=== PATIENT | female | born 1950 | race Hispanic/Latino ===

== ENCOUNTER → 2018-11-01 | Day surgery (SDC) | payer MEDICARE ==
[2018-10-30 10:35] LABS: BASOPHILS # (AUTO) 0.1 (0.0-0.1); EOSINOPHILS # (AUTO) 0.1 (0.0-0.4); EOSINOPHILS % 1.4 % (0.0-6.0); HEMATOCRIT 43.8 % (34.2-44.1); HEMOGLOBIN 14.9 g/dL (12.0-16.0); LYMPHOCYTES # (AUTO) 1.8 (1.0-3.2); LYMPHOCYTES % 19.2 % (18.0-39.1); MEAN CORPUSCULAR HEMOGLOBIN 33.2 pg (28-32); MEAN CORPUSCULAR VOLUME 97.6 fL (81-99); MONOCYTES # (AUTO) 0.7 (0.2-0.8); MONOCYTES % 7.6 % (4.4-11.3); NEUTROPHILS # (AUTO) 6.6 (2.1-6.9); NEUTROPHILS % 70.5 % (38.7-80.0); PLATELET COUNT 290 x10e3/uL (140-360); RED BLOOD COUNT 4.49 x10e6/uL (3.6-5.1); RED CELL DISTRIBUTION WIDTH 13.1 % (11.7-14.4)
[2018-10-30 10:58] LABS: INR 0.89; PROTHROMBIN TIME 12.5 seconds (11.9-14.5)
[2018-10-30 10:59] LABS: PARTIAL THROMBOPLASTIN TIME 26.9 seconds (23.8-35.5)
[2018-10-30 11:07] LABS: CHOL/HDL RATIO 2.5 (3.0-3.6)
[2018-10-30 11:29] LABS: ALBUMIN 4.7 g/dL (3.5-5.0); ANION GAP 15.9 mmol/L (8-16); CALCIUM 9.8 mg/dL (8.4-10.2); CREATININE, SERUM 0.93 mg/dL (0.57-1.11); POTASSIUM 3.9 mmol/L (3.5-5.1)
[~2018-11-01] VITALS: Ht 165.1 cm; Wt 76.2 kg
[2018-11-01] VITALS (7 sets, daily range): BP systolic 100–154; BP diastolic 57–80
[~2018-11-01] MED LIST: ASPIR 8181 MG PO; ASPIRIN 325 MG TAB ONE; CRESTOR10 MG PO; FENTANYL CITRATE/PF 100MCG/2 ML INJ ONE; HEPARIN SOD/SOD CHLORIDE 2,000 ML ONE; IOPAMIDOL 370 MG/ML 200 ML INFUS..BTL INJ ONE; LIDOCAINE HCL 2% LOCAL 20 ML VIAL ONE; LOSARTAN POTASS25 MG PO; METOPROLOL SUCC50 MG PO; MIDAZOLAM HCL 2 MG/2 ML VIAL ONE; PREVACID30 MG PO; QUINOL PO; SODIUM CHLORIDE 0.9% 1000ML 1,000 ML ONE; VERAPAMIL HCL 2.5 MG/ML 2 ML VIAL ONE; VITAMIN D35000 UNIT PO
--- OUTSIDE RECORDS SUMMARY | 2018-11-01 08:22 | XMS REPORT | Summary of Care ---
Author Author [facility] [place] Organization [facility] [place] Address Unknown Phone Unavailable Encounter HQ Encntr_alias(FIN) [id number] Date(s): 03/10/18 - 03/10/18 [facility] [place] [address] [place] [phone] Encounter Diagnosis Encounter for screening mammogram for malignant neoplasm of breast (Final) - 03/15/18 Discharge Disposition: Home or Self Care Attending Physician: Chema Galaviz MD Referring Physician: Chema Galaviz MD Vital Signs No data available for this section Problem List No data available for this section Allergies, Adverse Reactions, Alerts No data available for this section Medications No data available for this section Results No data available for this section Immunizations No data available for this section Procedures No data available for this section Social History No data available for this section Assessment and Plan No data available for this section
--- OUTSIDE RECORDS SUMMARY | 2018-11-01 08:22 | XMS REPORT | Summary of Care ---
Author Author [facility] [place] Organization [facility] [place] Address Unknown Phone Unavailable Encounter HQ Sarahntr_frank(FIN) [id number] Date(s): 03/08/17 - 03/08/17 [facility] [place] [address] [place] [phone] Discharge Disposition: Home or Self Care Attending Physician: Chema Galaviz MD Vital Signs No [...]
--- OUTSIDE RECORDS SUMMARY | 2018-11-01 08:22 | XMS REPORT | Summary of Care ---
Author Author [facility] Out[facility] - [place] Organization [facility] [place] Address Unknown Phone Unavailable Encounter HQ Johnr_frank([facility]) [id number] Date(s): 02/10/16 - 02/10/16 [facility] Out[facility] - [place] [address] [place] [address] [phone] Discharge Disposition: Home or Self Care Attending [...]
--- OUTSIDE RECORDS SUMMARY | 2018-11-01 08:22 | XMS REPORT | Continuity of Care Document ---
Author Author [facility] Organization [facility] Address Unknown Phone Unavailable Care Team Providers Care Project Management Professor Name Role Phone [employer] Unavailable Unavailable Problems Problem Status Onset Date Classification Date Reported Comments Source Encounter for screening mammogram for malignant neoplasm of breast 03/15/2018 09/28/2018 [facility] R92.8 - OTH ABN AND INCONCLUSIVE FINDI Active 02/27/2016 [facility] [place] Z12.31 - ENCNTR SCREEN MAMMOGRAM FOR MA Active 01/09/2016 [facility] [place] V70.0 - ROUTINE MEDICAL Active 12/12/2013 [facility] [place] Medications No Data Provided for This Section Allergies, Adverse Reactions, Alerts No Known Medication Allergies Immunizations No Data Provided for This Section Results No Data Provided for This Section Pathology Reports No Data Provided for This Section Diagnostic Reports Report Value Date Source Upper GI series DX Exam: Upper GI swallow exam Reason for Exam: GERD Comparison Exam: none Discussion: Twisting Frame Fixer view is unremarkable without evidence for dilated loops of bowel or abnormal air-fluid level patterns. Patient is status post cholecystectomy. Surrounding skeletal structures are unremarkable. Patient ingested barium and air crystals without incident. The esophagus is normal in appearance without evidence for mucosal irregularities or abnormal filling defects. No tertiary contraction waves or hiatal hernia. During the exam, there was no evidence seen for gastroesophageal reflux. The stomach and proximal duodenum are unremarkable in appearance. Fluoro time 1 minute, 20 seconds. Total exam LCK=9869 mGy-cm. Impression: 1. Unremarkable upper GI swallow exam. No evidence seen for gastroesophageal reflux. 09/07/2018 [facility] [place] Breast Mammo Scrn EDWIN incl CAD MA BILATERAL DIGITAL SCREENING MAMMOGRAM WITH CAD: 03/10/2018 CLINICAL: Routine/Screening. Current study was evaluated with a Computer Aided Detection (CAD) system. COMPARISON:Comparison is made to exams dated: 03/08/2017 mammogram, 02/10/2016 mammogram, [facility] TECHNIQUE: Mammographic views were obtained using digital acquisition. Current study was also evaluated with a Computer Aided Detection (CAD) system. FINDINGS: There are scattered fibroglandular densities in both breasts. No significant masses, calcifications, or other findings are seen in either breast. There has been no significant interval change. IMPRESSION: NEGATIVE RECOMMENDATION:There is no mammographic evidence of malignancy. A 1 year screening mammogram is recommended.(03/11/2019) This exam was interpreted at [id number] at [facility]. Professional services are provided by the [facility] of Diagnostic Imaging. Karol galindo/penrad:03/12/2018 10:57:20 Social Media Senior Associate(s): RT Timmy(R)(M), [facility] letter sent: BI-RADS 1/2 Mammogram BI-RADS: 1 Negative 03/10/2018 [facility] Bone Density DXA Dual Energy MA BONE DENSITY EVALUATION: 03/08/2017 CLINICAL DATA: Post menopausal and clinical risk for osteoporosis. Post menopause. /Post Menopausal FINDINGS: Bone density evaluation was performed 03/08/2017 on the right femur neck using a Hologic unit. The BMD average for the exam is 0.615 g/cm2. The T-score is -2.10 and the Z-score is -0.60. This matches the World Health Organization's criteria for osteopenia and places the patient at a medium risk for fracture. An additional bone density evaluation was performed 03/08/2017 on the left femur neck using a Hologic unit. The BMD average for the exam is 0.650 g/cm2. The T- score is -1.80 and the Z-score is -0.30. This matches the World Health Organization's criteria for osteopenia and places the patient at a medium risk for fracture. An additional bone density evaluation was performed 03/08/2017 on the right hip using a Hologic unit. The BMD average for the exam is 0.701 g/cm2. The T-score is -2.00 and the Z-score is -0.60. This matches the World Health Organization's criteria for osteopenia and places the patient at a medium risk for fracture. An additional bone density evaluation was performed 03/08/2017 on the left hip using a Hologic unit. The BMD average for the exam is 0.744 g/cm2. The T-score is -1.60 and the Z-score is -0.30. This matches the World Health Organization's criteria for osteopenia and places the patient at a medium risk for fracture. An additional bone density evaluation was performed 03/08/2017 on the AP L1-L4 region of spine using a Hologic unit. The BMD average for the exam is 0.888 g/cm2. The T-score is -1.40 and the Z-score is 0.50. This matches the World Health Organization's criteria for osteopenia and places the patient at a medium risk for fracture. IMPRESSION: OSTEOPENIA Patient is at medium risk for fracture. Patient consult w/primary care provider is recommended. This exam was interpreted at [id number] for [facility]. Chinyere Guidry M.D. ms/penrad:03/09/2017 13:08:15 Social Media Senior Associate(s): Milvia Salamanca RT(R)(M), [facility] 03/08/2017 [facility] Breast Mammo Scrn EDWIN incl CAD MA BILATERAL DIGITAL SCREENING MAMMOGRAM WITH CAD: 03/08/2017 CLINICAL: Routine/Screening. Current study was evaluated with a Computer Aided Detection (CAD) system. COMPARISON:Comparison is made to exams dated: 03/03/2016 mammogram, 02/10/2016 mammogram, 02/07/2015 mammogram, 12/21/2013 mammogram - [facility], and 06/13/2012 mammogram - [facility]. TECHNIQUE: Mammographic views were obtained using digital acquisition. Current study was also evaluated with a Computer Aided Detection (CAD) system. There are scattered fibroglandular densities in both breasts. FINDINGS: There are benign vascular calcifications in both breasts. No significant masses, calcifications, or other findings are seen in either breast. There has been no significant interval change. IMPRESSION: BENIGN RECOMMENDATION:There is no mammographic evidence of malignancy. A 1 year screening mammogram is recommended.(03/09/2018) This exam was interpreted at [id number] for SOTO Reyes 15. Reno Vasquez M.D. cm/penrad:03/08/2017 11:28:04 Social Media Senior Associate(s): RT Timmy(R)(M), [facility] letter sent: BI-RADS 1/2 Mammogram BI-RADS: 2 Benign 03/08/2017 [facility] Breast Limited Uni US - BREAST LIMITED UNI US/L ULTRASOUND OF LEFT BREAST: 03/03/2016 CLINICAL: R92.8 Other Abnormal And Inconclusive Findings On Diagnostic Imaging Of Breast. Comparison is made to exams dated: 03/03/2016 mammogram, 02/10/2016 mammogram, 02/07/2015 mammogram, 12/21/2013 mammogram - [facility], 06/13/2012 mammogram and 05/12/2011 mammogram - [facility]. Color flow and real-time ultrasound of the left breast were performed. No abnormalities were seen sonographically in the left breast. The mammographic finding appears to correspond with normal fibroglandular tissue. IMPRESSION: BENIGN There is no sonographic evidence of malignancy. A 1 year screening mammogram is recommended. Professional services are provided by the [facility]. Reno Vasqeuz M.D., cm/marcus:03/03/2016 15:49:25 Social Media Senior Associate: Diane Calderon, [facility] This exam was dictated and interpreted by [id number] for [facility]. letter sent: Normal exam Ultrasound BI-RADS: 2 Benign 03/03/2016 [facility] Digital Mammo DX Uni MA - DIGITAL MAMMO DX UNI MA/L UNILATERAL LEFT DIGITAL DIAGNOSTIC MAMMOGRAM WITH CAD: 03/03/2016 CLINICAL: R92.8 Other Abnormal And Inconclusive Findings On Diagnostic Imaging Of Breast. Current study was evaluated with a Computer Aided Detection (CAD) system. Comparison is made to exams dated: 02/10/2016 mammogram, 02/07/2015 mammogram, 12/21/2013 mammogram - [facility], 06/13/2012 mammogram and 05/12/2011 mammogram - [facility]. There are scattered fibroglandular densities in the left breast. There is a focal asymmetry in the left breast at 2 o'clock posterior depth 7.7 cm from the nipple. This finding becomes less prominent on spot images and may represent overlapping tissue. No other significant masses or calcifications are seen in the breast. IMPRESSION: INCOMPLETE: NEEDS ADDITIONAL IMAGING EVALUATION The focal asymmetry in the left breast is indeterminate. An ultrasound is recommended. Professional services are provided by the [facility] Division of Diagnostic Imaging. Reno Vasquez M.D., cm/penrad:03/03/2016 15:23:03 Social Media Senior Associate: Ayla KRISHNAMURTHY)(Jose Antonio), [facility] This exam was dictated and interpreted by [id number] for [facility]. Mammogram BI-RADS: 0 Indeterminate 03/03/2016 [facility] [place] Digital Mammo Screening Edwin MA - DIGITAL MAMMO SCREENING EDWIN MA BILATERAL DIGITAL SCREENING MAMMOGRAM WITH CAD: 02/10/2016 CLINICAL: Routine. Current study was evaluated with a Computer Aided Detection (CAD) system. Comparison is made to exams dated: 02/07/2015 mammogram, 12/[facility], 06/13/2012 mammogram and 05/12/2011 mammogram - [facility]. There are scattered fibroglandular densities in both breasts. There is a focal asymmetry in the left breast at 2 o'clock posterior depth 7.7 cm from the nipple. This is most prominent on the MLO view. No other significant masses, calcifications, or other findings are seen in either breast. IMPRESSION: INCOMPLETE: NEEDS ADDITIONAL IMAGING EVALUATION The focal asymmetry in the left breast is indeterminate. Additional views with possible ultrasound are recommended. Professional services are provided by the [facility] Division of Diagnostic Imaging. Reno Vasquez M.D., cm/penrad:02/11/2016 08:26:56 Social Media Senior Associate: Ayla KRISHNAMURTHY)(Jose Antonio), [facility] [place] This exam was dictated and interpreted by [id number] for [facility]. letter sent: Additional Imaging Mammogram BI-RADS: 0 Indeterminate 02/10/2016 [facility] [place] Digital Mammo Screening Edwin MA - DIGITAL MAMMO SCREENING EDWIN MA BILATERAL DIGITAL SCREENING MAMMOGRAM WITH CAD: 02/07/2015 CLINICAL: Routine. Current study was evaluated with a Computer Aided Detection (CAD) system. Comparison is made to exams dated: 12/21/2013 mammogram - [facility] [place], 06/13/2012 mammogram and 05/12/2011 mammogram - [facility]. There are scattered fibroglandular densities in both breasts. There are benign appearing vascular calcifications in both breasts. There also are benign appearing scattered calcifications in both breasts. Additionally there are post operative findings in the left breast. No significant masses, calcifications, or other findings are seen in either breast. There has been no significant interval change. IMPRESSION: BENIGN There is no mammographic evidence of malignancy. A 1 year screening mammogram is recommended. Rylan pedersen/marcus:02/18/2015 14:03:26 Social Media Senior Associate: Ayla KRISHNAMURTHY)(Jose Antonio), [facility] This exam was dictated and interpreted by [id number] for [facility] Altamir[facility]. letter sent: Normal exam Mammogram BI-RADS: 2 Benign 02/07/2015 [facility] Bone Density-Dual Energy Absorptionmetry - Bone Density- Dual Energy Absorptionmetry BONE DENSITY EVALUATION: 12/21/2013 CLINICAL DATA: Post menopausal. FINDINGS: Bone density evaluation was performed 12/21/2013 on the AP L1-L4 region of spine using Lunar Dual Energy X-Ray Absorptiometry. The BMD average for the exam is 1.034 g/cm2. The T-score is -1.20 and the Z-score is 0.10. These values indicate 101.0% for age-matched controls. This matches the World Health Organization's criteria for osteopenia and places the patient at a medium risk for fracture. An additional bone density evaluation was performed 12/21/2013 on the right femur neck using Lunar Dual Energy X-Ray Absorptiometry. The BMD average for the exam is 0.751 g/cm2. The T-score is -2.10 and the Z-score is -0.80. These values indicate 88.0% for age-matched controls. This matches the World Health Organization's criteria for osteopenia and places the patient at a medium risk for fracture. An additional bone density evaluation was performed 12/21/2013 on the right hip using Lunar Dual Energy X-Ray Absorptiometry. The BMD average for the exam is 0.766 g/cm2. The T-score is -1.90 and the Z-score is -0.90. These values indicate 87.0% for age-matched controls. This matches the World Health Organization's criteria for osteopenia and places the patient at a medium risk for fracture. An additional bone density evaluation was performed 12/21/2013 on the left femur neck using Lunar Dual Energy X-Ray Absorptiometry. The BMD average for the exam is 0.791 g/cm2. The T-score is -1.80 and the Z-score is -0.50. These values indicate 92.0% for age-matched controls. This matches the World Health Organization's criteria for osteopenia and places the patient at a medium risk for fracture. An additional bone density evaluation was performed 12/21/2013 on the left hip using Lunar Dual Energy X-Ray Absorptiometry. The BMD average for the exam is 0.797 g/cm2. The T-score is -1.70 and the Z-score is -0.70. These values indicate 91.0% for age-matched controls. This matches the World Health Organization's criteria for osteopenia and places the patient at a medium risk for fracture. IMPRESSION: OSTEOPENIA Patient is at medium risk for fracture. Dr. Samira caballero/penrad:12/21/2013 15:17:35 Social Media Senior Associate: Joey Wray, [facility] [place] Digital Mammo Screening Edwin MA - DIGITAL MAMMO SCREENING EDWIN MA BILATERAL DIGITAL SCREENING MAMMOGRAM WITH CAD: 12/21/2013 CLINICAL: Routine. Current study was evaluated with a Computer Aided Detection (CAD) system. Comparison is made to exams dated: 05/12/2011 mammogram and 06/13/2012 mammogram - [facility]. There are scattered fibroglandular densities in both breasts. No significant masses, calcifications, or other findings are seen in either breast. There has been no significant interval change. IMPRESSION: NEGATIVE There is no mammographic evidence of malignancy. A screening mammogram in one year is recommended. Dr. Samira caballero/penrad:12/28/2013 16:26:09 Social Media Senior Associate: Jeanne Wilson RT(R)(M), [facility] This exam was dictated and interpreted by [id number] for [facility]. letter sent: Normal exam Mammogram BI-RADS: 1 Negative 12/21/2013 [facility] Consultation Notes No Data Provided for This Section Discharge Summaries No Data Provided for This Section History and Physicals No Data Provided for This Section Vital Signs No Data Provided for This Section Encounters Location Location Details Encounter Type Encounter Number Reason For Visit Attending Provider ADM Date DC Date Status Source [facility] [place] [facility] [id number] [facility] 12/21/2013 12/22/2013 [facility] [place] [facility] [place] [facility] [id number] [facility] 02/07/2015 02/08/2015 [facility] [place] [facility] [place] [facility] [id number] [facility] 02/10/2016 02/11/2016 [facility] [place] [facility] [place] [facility] [id number] [facility] 03/03/2016 03/04/2016 [facility] [place] [facility] [place] [facility] [id number] [facility] 03/08/2017 03/09/2017 [facility] [place] [facility] [place] [facility] [id number] [facility] 03/10/2018 03/11/2018 [facility] [place] [facility] [place] [facility] [id number] [facility] 09/07/2018 09/08/2018 [facility] [place] Procedures No Data Provided for This Section Assessment and Plan No Data Provided for This Section Plan of Care No Data Provided for This Section Social History Social History Date Source No data available for this section 03/11/2018 [facility] [place] Family History No Data Provided for This Section Advance Directives No Data Provided for This Section Functional Status No Data Provided for This Section
--- OUTSIDE RECORDS SUMMARY | 2018-11-01 08:22 | XMS REPORT | Summary of Care ---
Author Organization Unknown Address Unknown Phone Unavailable Encounter HQ Johnr_frank(AMY) [id number] Date(s): 12/21/13 - 12/21/13 [facility] Outpatient Imaging - [address] [address] [place] Discharge Disposition: Home Physician Attending: Chema Galaviz MD Reason for Visit V70.0 - ROUTINE MEDICAL Problem List No data available for this section Allergies, Adverse Reactions, Alerts No data available for this section Medications No data available for this section Medications Administered During Your Visit No data available for this section Immunizations No data available for this section
--- OUTSIDE RECORDS SUMMARY | 2018-11-01 08:22 | XMS REPORT | Summary of Care ---
Author Author [facility] [place] Organization [facility] [place] Address Unknown Phone Unavailable Encounter HQ Johnr_frank([facility]) [id number] Date(s): 03/03/16 - 03/03/16 [facility] Outpatient Imaging - [place] [address] [place] [phone] Discharge Disposition: Home or Self Care Attending [...]
--- OUTSIDE RECORDS SUMMARY | 2018-11-01 08:22 | XMS REPORT | Summary of Care ---
Author Author [facility] - [place] Organization [facility] [place] Address Unknown Phone Unavailable Encounter HQ Encntr_frank(FIN) [id number] Date(s): 09/07/18 - 09/07/18 [facility] [place] [address] [place] [phone] Discharge Disposition: Home or Self Care Attending [...]
--- OUTSIDE RECORDS SUMMARY | 2018-11-01 08:22 | XMS REPORT | Summary of Care ---
Author Author [facility] - [place] Organization [facility] [place] Address Unknown Phone Unavailable Encounter HQ Johnr_frank([facility]) [id number] Date(s): 02/07/15 - 02/07/15 [facility] [place] [address] [place] [id number] [phone] Discharge Disposition: Home Attending Physician: Chema Galaviz MD Vital Signs [...]
--- NOTE | 2018-11-01 09:45 | NUR ---
0945am Pt in Rm#9, prepped for procedure.Identiferx2. Alert oriented and appropriate, PERRLA, respirations even and unlabored to room air. Pulses x4 extremities equal and faint. Pedal pulses PT/DP weak to nonexistent and marked. Cap fill brisk < 3 sec. bilateral feet semi cool and pale. Skin warm and dry integrity appears intact in general. IV #20x1 started and presents healthy w/o s/s of infiltration or complaint. Abdomen soft and supple. pt offered toileting, denies need to urinate or defecate. Personal affects with patient. Family step out Diana Ramos daughter available for ride . Pt verbalizes understanding of POC. Pre-Op Meds ASA 325 small sip h2O given. bed low and locked, side rails up x2 and call light at side. -ds/rn
--- NOTE | 2018-11-01 12:15 | NUR ---
1215 bedside report received from [place] JUAREZ. Recovery Rm #10 Identiferx2 Alert oriented and appropriate, PERRLA, respirations even and unlabored to room air. Pulses x4 extremities equal and strong. Pedal pulses PT/DP x4 and marked. Cap fill brisk < 3 sec. Skin warm and dry integrity appears D/I IV 20g to left arm infusing at 200cchr via pump. Presents healthy w/o s/s of infiltration or complaint. Abdomen soft and supple. pt offered toileting, denies need to urinate or defecate. No personal affects with patient. Family daughter Diana . Pt and family verbalizes understanding of POC. Currently w/o complaint of pain or need. Rt TR band site w/o hematoma or oozing. Tr band to reduce air at 1330 No gross issues pain pallor pressure or dysrhythmia. Tolerating po intake tentivie dc at 1415pm. ds/kar
--- NOTE | 2018-11-01 13:15 | NUR ---
1315ADIAL Compression removal: Initial Cuff volume 11 cc 1315p -2cc Removed No hematoma/bleeding noted with normal neurovascular function. 1330p -2cc Removed No hematoma/ bleeding noted with normal neurovascular function. Air removal completed. Stasis achieved sterile 2x2,Tegaderm, Coban dressing No hematoma, bleeding noted with normal neurovascular function. Wrist splint in place. Pt instructed on POC. Ds/Rn
--- NOTE | 2018-11-01 13:30 | NUR ---
1330t meets DC criteria.Rt TR band site assessed for s/s of complication and presence of hematoma. warm, dry, no discolor, and pulses present. IV removed from arm. Distal tip appears intact. VS WNL. Pt denies pain, sob, or need at this time. Family Diana . Review of discharge paperwork and follow up instructions. verbalized understanding. Pt to wheelchair and transported to front of hospital. Transferred to private vehicle under own strength w/o incident with DC paperwork in hand. ds/rn
--- NOTE | 2018-11-01 15:03 | Operative Report ---
DATE OF PROCEDURE: 11/01/2018 SURGEON: Nithin Tang MD PROCEDURE INDICATION: Chest pain concerning for angina pectoris and abnormal stress test. PROCEDURES PERFORMED: 1. Left heart catheterization. 2. Selective coronary angiography. 3. TR band hemostasis. PROCEDURE COMPLICATIONS: None. ESTIMATED BLOOD LOSS: Less than 5 mL. PROCEDURE SUMMARY: After consent was obtained, the patient was prepped and draped in a sterile fashion. The right radial site was locally infiltrated with 2% lidocaine and access was obtained with single anterior stick through a right radial artery. A 5-Maltese slender sheath was advanced and 2.5 mg of verapamil, 300 mcg of nitroglycerin, and 5000 units of heparin were administered via the sheath. A TIG catheter 5-Maltese in caliber was used for engagement of the left main, right coronary artery as well as across the aortic valve for hemodynamic measurements. No left ventriculogram was performed. FINDINGS: 1. LV pressure was 130/69. 2. Aortic pressure was 130/72. 3. The left main is large in caliber with luminal irregularities, gives an LAD and circumflex. 4. The LAD has luminal irregularities. It gives a couple diagonals and multiple septal perforators. 5. The circumflex gives a medium caliber high takeoff 1st obtuse marginal and small caliber 2nd obtuse marginal and a medium caliber 3rd obtuse marginal. It has luminal irregularities throughout. 6. The right coronary artery also has luminal irregularities, is a dominant vessel, and gives a terminal RPDA and RPLV. 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 RECOMMENDATIONS: 1. Medical aggressive therapy. 2. Wean TR band. 3. IV fluids. Nithin Tang MD AFV/MODL /[id number]
== END | disposition home or self-care (01) ==
LOC: CATH LAB 08:17
PROVIDERS: ATTEND Internal Medicine Cardiovascular Disease
DX: I25.10 Atherosclerotic heart disease of native coronary artery without angina pectoris (principal); R94.39 Abnormal result of other cardiovascular function study; I65.29 Occlusion and stenosis of unspecified carotid artery; I10 Essential (primary) hypertension; E78.5 Hyperlipidemia, unspecified; E66.3 Overweight; Z01.810 Encounter for preprocedural cardiovascular examination; Z01.812 Encounter for preprocedural laboratory examination; Z79.82 Long term (current) use of aspirin; Z68.28 Body mass index [BMI] 28.0-28.9, adult; Z82.49 Family history of ischemic heart disease and other diseases of the circulatory system
CPT/HCPCS: 36415; 80053; 80061; 85025; 85610; 85730; 93005; 93458; C1887; J2001; J2250; J3010; J7030; Q9967